=== PATIENT | female | born 1985 | race African-American/Black ===

== ENCOUNTER 2016-12-06 11:37 | Emergency (ER) | payer MEDICAID ==
--- NOTE | 2016-12-06 13:26 | ER Document Report ---
HPI - HPI Patient complains to provider of: congestion and sinus infection Onset: Other Onset/Duration: Gradual Quality of pain: Throbbing Severity: Moderate Pain Level: 3 Context: Patient states she has had cough and congestion, fever, and sinus pain for several days. States she is coughing up green phlegm. Associated Symptoms: Productive cough, Fever, Headache, Sinus pain/drainage, Sore throat Exacerbated by: Denies Relieved by: Denies Similar symptoms previously: Yes Recently seen / treated by doctor: No - ROS ROS below otherwise negative: Yes Systems Reviewed and Negative: Yes All other systems reviewed and negative - CONSTITUTIONAL Constitutional: REPORTS: Fever - EENT EENT: REPORTS: Sore Throat, Ear Pain, Nasal Drainage-Purulent, Congestion - NEURO Neurology: REPORTS: Headache - CARDIOVASCULAR Cardiovascular: DENIES: Chest pain - RESPIRATORY Respiratory: REPORTS: Coughing. DENIES: Trouble Breathing - GASTROINTESTINAL Gastrointestinal: DENIES: Abdominal Pain - URINARY Urinary: DENIES: Dysuria - REPRODUCTIVE Reproductive: DENIES: : - MUSCULOSKELETAL Musculoskeletal: DENIES: Extremity pain - DERM Skin Color: Normal Past Medical History - General Information source: Patient - Social History Smoking Status: Current Every Day Smoker Cigarette use (# per day): Yes - ecig Frequency of alcohol use: Occasional Drug Abuse: None Lives with: Family Family History: Reviewed & Not Pertinent Patient has suicidal ideation: No Patient has homicidal ideation: No Musculoskeltal Medical History: Reports Hx Arthritis, Reports Hx Musculoskeletal Deformity Psychiatric Medical History: Reports: Hx Attention Deficit Hyperactivity Disorder, Hx Depression Surgical Hx: Negative - Immunizations Hx Diphtheria, Pertussis, Tetanus Vaccination: Yes Hx Pneumococcal Vaccination: 03/13/09 Vertical Provider Document - CONSTITUTIONAL Agree With Documented VS: Yes Exam Limitations: No Limitations General Appearance: WD/WN, No Apparent Distress - INFECTION CONTROL TRAVEL OUTSIDE OF THE [place] IN LAST 30 DAYS: No - HEENT HEENT: Atraumatic, Normocephalic, Pharyngeal Erythema Notes: TMs dull bilaterally, patient has facial pain with palpation over maxillary sinuses. - NECK Neck: Normal Inspection, Supple - RESPIRATORY Respiratory: No Respiratory Distress, Wheezing - Mild expiratory wheezing noted O2 Sat by Pulse Oximetry: 97 - CARDIOVASCULAR Cardiovascular: Regular Rate, Regular Rhythm - GI/ABDOMEN Gastrointestinal: Abdomen Soft, Abdomen Non-Tender - MUSCULOSKELETAL/EXTREMETIES Musculoskeletal/Extremeties: MAEW - NEURO Level of Consciousness: Awake, Alert, Appropriate - DERM Integumentary: Warm, Dry Course - Vital Signs Vital signs: Temp Pulse Resp BP Pulse Ox 98.5 F 71 16 113/70 97 12/06/16 12:06 12/06/16 12:06 12/06/16 12:17 12/06/16 12:06 12/06/16 12:06 Discharge - Discharge Clinical Impression: Acute non-recurrent maxillary sinusitis, Wheezing, Productive cough Condition: Good Disposition: HOME, SELF-CARE Additional Instructions: Antibiotics and Flonase as prescribed Continue [id number] cough cold medications as needed Inhaler 2 puffs every 4 hours as needed for cough and/or wheezing Follow-up with your primary care doctor Monday for recheck, earlier if symptoms worsen Return as needed Prescriptions: Albuterol Sulfate [Proair HFA] 1 - 2 puff IH Q4 PRN #1 inhaler PRN Reason: Amox Tr/Potassium Clavulanate [Augmentin 875-125 mg Tablet] 1 tab PO BID #20 tablet Fluticasone Propionate [Flonase Allergy Relief] 15.8 ml NS DAILY #1 spray.susp Prednisone [Deltasone 10 mg Tablet] 10 mg PO ASDIR PRN #21 tablet PRN Reason: Forms: Return to Work, Return to School
[2016-12-06 13:45] VITALS: BP 110/65
== END 2016-12-06 13:44 | disposition home or self-care (01) ==
LOC: ER 11:37
DX: J01.00 Acute maxillary sinusitis, unspecified (principal); R05 Cough; R50.9 Fever, unspecified; J02.9 Acute pharyngitis, unspecified; H92.09 Otalgia, unspecified ear; R06.2 Wheezing; F17.290 Nicotine dependence, other tobacco product, uncomplicated
CPT/HCPCS: 99283

== ENCOUNTER 2016-12-14 21:33 | Emergency (ER) | payer SELFPAY ==
[2016-12-14 21:43] VITALS: BP 120/70
--- NOTE | 2016-12-14 23:11 | RADIOLOGY REPORT (SQ) ---
EXAM DESCRIPTION: KNEE RIGHT 4 VIEWS COMPLETED DATE/TIME: 12/14/2016 10:57 pm REASON FOR STUDY: FALL COMPARISON: None. NUMBER OF VIEWS: Four views. TECHNIQUE: AP, lateral, and both oblique radiographic images acquired of the right knee. LIMITATIONS: None. FINDINGS: MINERALIZATION: Normal. BONES: No acute fracture or dislocation. No worrisome bone lesions. JOINT: No effusion. SOFT TISSUES: No soft tissue swelling. No radio-opaque foreign body. OTHER: No other significant finding. IMPRESSION: NO RADIOGRAPHIC EVIDENCE OF ACUTE INJURY. TECHNICAL DOCUMENTATION: JOB ID: [id number] [employer]- All Rights Reserved
--- NOTE | 2016-12-14 23:14 | RADIOLOGY REPORT (SQ) ---
EXAM DESCRIPTION: KNEE LEFT 4 VIEW COMPLETED DATE/TIME: 12/14/2016 10:57 pm REASON FOR STUDY: FALL COMPARISON: None. NUMBER OF VIEWS: Four views. TECHNIQUE: AP, lateral, and both oblique radiographic images acquired of the left knee. LIMITATIONS: None. FINDINGS: MINERALIZATION: Normal. BONES: No acute fracture or dislocation. No worrisome bone lesions. JOINT: No effusion. SOFT TISSUES: No soft tissue swelling. No radio-opaque foreign body. OTHER: No other significant finding. IMPRESSION: NO RADIOGRAPHIC EVIDENCE OF ACUTE INJURY. TECHNICAL DOCUMENTATION: JOB ID: [id number] [employer]- All Rights Reserved
--- NOTE | 2016-12-14 23:47 | ER Document Report ---
ED General - General Chief Complaint: Fall Stated Complaint: LEG INJURY Time Seen by Provider: 12/14/16 23:35 Notes: The patient is a 31-year-old female who presents 1 day after she scratched her right leg on a sharp shelf at [facility]. She said that she landed on both of her knees and she is having pain when she walks. Her tetanus is up-to-date. She denies heavy bleeding, numbness, tingling or any other injuries. TRAVEL OUTSIDE OF THE [place] IN LAST 30 DAYS: No - Related Data Allergies/Adverse Reactions: acetaminophen [From Vicodin] Allergy (Verified 11/26/13 20:58) VOMITING hydrocodone bitartrate [From Vicodin] Adverse Reaction (Verified 11/26/13 20:58) VOMITING Past Medical History - General Information source: Patient - Social History Smoking Status: Current Every Day Smoker Frequency of alcohol use: None Drug Abuse: None Family History: Reviewed & Not Pertinent Patient has suicidal ideation: No Patient has homicidal ideation: No Renal/ Medical History: Denies: Hx Peritoneal Dialysis Musculoskeltal Medical History: Reports Hx Arthritis, Reports Hx Musculoskeletal Deformity Psychiatric Medical History: Reports: Hx Attention Deficit Hyperactivity Disorder, Hx Depression - Immunizations Hx Diphtheria, Pertussis, Tetanus Vaccination: Yes Hx Pneumococcal Vaccination: 03/13/09 Review of Systems - Review of Systems Notes: REVIEW OF SYSTEMS: CONSTITUTIONAL: -fevers, -chills EENT: -eye pain, -difficulty swallowing, -nasal congestion CARDIOVASCULAR:-chest pain, -syncope. RESPIRATORY: -cough, -SOB GASTROINTESTINAL: -abdominal pain, - nausea, -vomiting, -diarrhea GENITOURINARY: -dysuria, -hematuria MUSCULOSKELETAL: +B/L knee pain, -back pain, -neck pain SKIN: +right leg abrasion HEMATOLOGIC: -easy bruising or bleeding. LYMPHATIC: -swollen, enlarged glands. NEUROLOGICAL: -altered mental status or loss of consciousness, -headache, - neurologic symptoms PSYCHIATRIC: -anxiety, -depression. ALL OTHER SYSTEMS REVIEWED AND NEGATIVE. Physical Exam - Vital signs Vitals: Temp Pulse Resp BP Pulse Ox 97.9 F 82 16 120/70 98 12/14/16 21:40 12/14/16 21:40 12/14/16 21:40 12/14/16 21:40 12/14/16 21:40 - Notes Notes: PHYSICAL EXAMINATION: GENERAL: Well-appearing, well-nourished and in no acute distress. HEAD: Atraumatic, normocephalic. EYES: Pupils equal round and reactive to light, extraocular movements intact, sclera anicteric, conjunctiva are normal. ENT: nares patent, oropharynx clear without exudates. Moist mucous membranes. NECK: Normal range of motion, supple without lymphadenopathy LUNGS: Breath sounds clear to auscultation bilaterally and equal. No wheezes rales or rhonchi. HEART: Regular rate and rhythm without murmurs ABDOMEN: Soft, nontender, normoactive bowel sounds. No guarding, no rebound. No masses appreciated. EXTREMITIES: Normal range of motion, no pitting or edema. No cyanosis. Non- tender and non-swollen knees. NEUROLOGICAL: Cranial nerves grossly intact. Normal speech, normal gait. Normal sensory and motor exams. PSYCH: Normal mood, normal affect. SKIN: Very small superficial abrasion over right cifuentes Course - Re-evaluation Re-evalutation: Patient with no evidence of serious injuries. Her tetanus is up-to-date. Instructed her about abrasion and contusion management. - Vital Signs Vital signs: Temp Pulse Resp BP Pulse Ox 97.9 F 82 16 120/70 98 12/14/16 21:40 12/14/16 21:40 12/14/16 21:40 12/14/16 21:40 12/14/16 21:40 - Diagnostic Test Radiology reviewed: Image reviewed, Reports reviewed Radiology results interpreted by me: B/L Knee x-rays: NAD Discharge - Discharge Clinical Impression: Scratch of lower leg Qualifiers: Encounter type: initial encounter Laterality: right Qualified Code(s): S80.811A - Abrasion, right lower leg, initial encounter Condition: Stable Disposition: HOME, SELF-CARE Additional Instructions: Abrasions An abrasion is a scraping injury of the skin. Some scarring may result. The seriousness of an abrasion is not always obvious at first. Hidden tissue damage may be present and infection may occur despite proper care. Complete healing may take from ten days to as long as a month. The healing time depends on the depth of the abrasion, and on the amount of crushing of underlying tissues from the injury. Keep the wound and dressing clean. Do not shower or bathe the area until okayed by the doctor. If the dressing gets wet, remove it and blot the wound dry, then reapply a clean dressing. Dressings should be changed every day. Sunscreen should be used for six months after the skin is healed. If any signs of infection occur (swelling, redness, increasing tenderness, red streaks, profuse purulent drainage from the abrasion, tender lumps in the armpit or groin above the abrasion, or fever), see the doctor immediately. Forms: Parent Work Note, Return to School
== END 2016-12-15 00:05 | disposition home or self-care (01) ==
LOC: ER 21:33
DX: S80.811A Abrasion, right lower leg, initial encounter (principal); M25.561 Pain in right knee; M25.562 Pain in left knee; W18.09XA Striking against other object with subsequent fall, initial encounter; Y92.512 Supermarket, store or market as the place of occurrence of the external cause; F17.200 Nicotine dependence, unspecified, uncomplicated; Z88.6 Allergy status to analgesic agent
CPT/HCPCS: 99283

== ENCOUNTER 2017-01-02 17:35 | Emergency (ER) | payer SELFPAY ==
[2017-01-02] MEDS ORDERED: ONDANSETRON 4 MG TAB.RAPDIS PO ONE (18:54)
[2017-01-02] MEDS ORDERED: IBUPROFEN 800 MG TABLET PO ONE (18:54)
--- NOTE | 2017-01-02 19:31 | ER Document Report ---
HPI - HPI Patient complains to provider of: Headache, vomiting, fever Onset: Other - 2 days Onset/Duration: Gradual Quality of pain: Achy Pain Level: 3 Context: Patient presents complaining of headache pain to bilateral temporal area that started yesterday and gradually worsened today. Patient reports nausea and vomiting 1 episode today. Patient denies any diarrhea. Patient reports temperature of 102.2 days ago but no fever today. Patient also reports noticing pruritic skin lesions to the right lateral elbow area that started 2 days ago. Patient's daughter is here with similar symptoms. Associated Symptoms: Fever, Headache, Nausea, Vomiting. denies: Chest pain, Nonproductive cough, Productive cough, Diarrhea, Sore throat Exacerbated by: Denies Relieved by: Denies Similar symptoms previously: No Recently seen / treated by doctor: No - ROS ROS below otherwise negative: Yes Systems Reviewed and Negative: Yes All other systems reviewed and negative - CONSTITUTIONAL Constitutional: REPORTS: Fever - NEURO Neurology: REPORTS: Headache - CARDIOVASCULAR Cardiovascular: DENIES: Chest pain - RESPIRATORY Respiratory: DENIES: Coughing - GASTROINTESTINAL Gastrointestinal: REPORTS: Nausea, Patient vomiting. DENIES: Abdominal Pain, Diarrhea - REPRODUCTIVE Reproductive: DENIES: : - MUSCULOSKELETAL Musculoskeletal: DENIES: Extremity pain, Back Pain, Neck Pain - DERM Skin Color: Normal Skin Problems: Rash Past Medical History - General Information source: Patient - Social History Smoking Status: Current Every Day Smoker Chew tobacco use (# tins/day): No Frequency of alcohol use: None Drug Abuse: Heroin Occupation: none Lives with: Family Family History: Reviewed & Not Pertinent Renal/ Medical History: Denies: Hx Peritoneal Dialysis Musculoskeltal Medical History: Reports Hx Arthritis, Reports Hx Musculoskeletal Deformity Psychiatric Medical History: Reports: Hx Attention Deficit Hyperactivity Disorder, Hx Depression Surgical Hx: Negative - Immunizations Hx Diphtheria, Pertussis, Tetanus Vaccination: Yes Hx Pneumococcal Vaccination: 03/13/09 Vertical Provider Document - CONSTITUTIONAL Agree With Documented VS: Yes Exam Limitations: No Limitations General Appearance: WD/WN, No Apparent Distress - INFECTION CONTROL TRAVEL OUTSIDE OF THE [place] IN LAST 30 DAYS: No - HEENT HEENT: Atraumatic, Normal ENT Exam, Normocephalic. negative: Pharyngeal Exudate , Pharyngeal Tenderness, Pharyngeal Erythema, Tympanic Membrane Red, Tympanic Membrane Bulging - NECK Neck: Normal Inspection, Supple. negative: Lymphadenopathy-Left, Lymphadenopathy-Right Notes: No meningismus - RESPIRATORY Respiratory: Breath Sounds Normal, No Respiratory Distress, Chest Non-Tender O2 Sat by Pulse Oximetry: 96 - CARDIOVASCULAR Cardiovascular: Regular Rate, Regular Rhythm, No Murmur - GI/ABDOMEN Gastrointestinal: Abdomen Soft, Abdomen Non-Tender, No Organomegaly, Normal Bowel Sounds - BACK Back: Normal Inspection. negative: CVA Tenderness-Right, CVA Tenderness-Left Notes: No spinal tenderness - MUSCULOSKELETAL/EXTREMETIES Musculoskeletal/Extremeties: PATRICIA OBRIEN - NEURO Level of Consciousness: Awake, Alert, Appropriate Motor/Sensory: No Motor Deficit - DERM Integumentary: Warm, Dry, Rash - Few scattered erythematous raised lesions near the elbow concerning for possible insect bite, no concern for abscess, rash not overlying IVDA track morfin Notes: Patient with multiple IVDA track morfin to bilateral upper extremities Course - Re-evaluation Re-evalutation: 01/02/17 19:[address] Chinchilla regarding patient presentation, physical exam findings as well as history. No suspicion for meningitis at this time. Patient afebrile with normal vital signs. Patient's symptoms similar presentation to her daughter who is also here as a patient tonight. No concern for endocarditis. Patient nontoxic in appearance. - Vital Signs Vital signs: Temp Pulse Resp BP Pulse Ox 98.5 F 74 15 114/73 96 01/02/17 17:48 01/02/17 17:48 01/02/17 17:48 01/02/17 17:48 01/02/17 17:48 Discharge - Discharge Clinical Impression: Skin rash Headache Qualifiers: Headache type: unspecified Headache chronicity pattern: acute headache Intractability: not intractable Qualified Code(s): R51 - Headache Nausea and vomiting Qualifiers: Vomiting type: unspecified Vomiting Intractability: non-intractable Qualified Code(s): R11.2 - Nausea with vomiting, unspecified Condition: Stable Disposition: HOME, SELF-CARE Instructions: Antinausea Medication ([facility]), Headache ([facility]), Insect Bites ([facility]), Viral Syndrome ([facility]), Vomiting ([facility]) Additional Instructions: Return immediately for any new or worsening symptoms Followup with your primary care provider, call tomorrow to make a followup appointment Avoid use of recreational drugs Prescriptions: Naproxen [Naprosyn 250 Nmg Tablet] 1 tab PO BID #14 tablet Promethazine HCl [Phenergan 25 mg Tablet] 25 mg PO Q6H PRN #12 tablet PRN Reason: RX: Triamcinolone Acetonide [Aristocort 0.1% Cream] 1 applic TP TID #60 gm Forms: Return to Work Referrals: [facility] [Provider Group] - Follow up as needed [facility] [Provider Group] - Follow up as needed [facility] [Provider Group] - Follow up as needed
[2017-01-02 20:07] VITALS: BP 103/60
== END 2017-01-02 20:03 | disposition home or self-care (01) ==
LOC: ER 17:35
DX: R21 Rash and other nonspecific skin eruption (principal); R51 Headache; R11.2 Nausea with vomiting, unspecified; R50.9 Fever, unspecified; F17.200 Nicotine dependence, unspecified, uncomplicated
CPT/HCPCS: 99283; S0119

== ENCOUNTER 2018-06-13 16:06 | Emergency (ER) | payer SELFPAY ==
[2018-06-13 16:14] VITALS: BP 131/83
--- NOTE | 2018-06-13 16:37 | ER Document Report ---
ED Respiratory Problem - General Chief Complaint: Congestion Stated Complaint: CONGESTION AND BUG BITES Time Seen by Provider: 06/13/18 16:10 Mode of Arrival: Ambulatory Information source: Patient Notes: 33-year-old female presents to ED for cough cold congestion times 5 days. She states she was having a temperature of 102.5 off and on the and first but is no elevated temp since the first. Patient states she has multiple bedbug bites all over her neck back arms and abdomen. Patient is alert oriented respirations regular and unlabored speaking in full sentences walking with a even steady gait. Patient has no infected insect bites. She does have multiple little pick morfin to the above areas. TRAVEL OUTSIDE OF THE [place] IN LAST 30 DAYS: No - HPI Patient complains to provider of: Cough Onset: Last week Duration: Continuous Initiating Event: URI Quality of pain: Achy Severity: Moderate Pain Level: 3 Context: Smoker Cough: Nonproductive Sputum amount: None Associated symptoms: Chills, Congestion, Cough, PND, Runny nose, Sinus pain/pressure, Other - Multiple "insect bites "to the neck chest back arms and abdomen. Similar symptoms previously: Yes Recently seen / treated by doctor: No - Related Data Allergies/Adverse Reactions: acetaminophen [From Vicodin] Allergy (Verified 06/13/18 16:07) VOMITING hydrocodone bitartrate [From Vicodin] Adverse Reaction (Verified 06/13/18 16:07) VOMITING Past Medical History - General Information source: Patient - Social History Smoking Status: Current Every Day Smoker Cigarette use (# per day): Yes Chew tobacco use (# tins/day): No Smoking Education Provided: Yes - 4 minutes Frequency of alcohol use: Occasional Drug Abuse: Marijuana Lives with: Family Family History: Reviewed & Not Pertinent Patient has suicidal ideation: No Patient has homicidal ideation: No - Past Medical History Cardiac Medical History: Reports: None Pulmonary Medical History: Reports: None EENT Medical History: Reports: None Neurological Medical History: Reports: None Endocrine Medical History: Reports: None Renal/ Medical History: Reports: None Malignancy Medical History: Reports: None GI Medical History: Reports: None Musculoskeletal Medical History: Reports Hx Arthritis, Reports Hx Musculoskeletal Deformity Skin Medical History: Reports None Psychiatric Medical History: Reports: Hx Attention Deficit Hyperactivity Disorder, Hx Depression, Hx Post Traumatic Stress Disorder Traumatic Medical History: Reports: Hx Fractures - Ankle Infectious Medical History: Reports: None Surgical Hx: Negative Past Surgical History: Reports: None - Immunizations Immunizations up to date: Yes Hx Diphtheria, Pertussis, Tetanus Vaccination: Yes Hx Pneumococcal Vaccination: 03/13/09 Review of Systems - Review of Systems Constitutional: No symptoms reported EENT: Nose discharge, Sinus discharge Cardiovascular: No symptoms reported Respiratory: Cough Gastrointestinal: No symptoms reported Genitourinary: No symptoms reported Female Genitourinary: No symptoms reported Musculoskeletal: No symptoms reported Skin: Rash - Rash/insect bites to neck back chest arms legs Hematologic/Lymphatic: No symptoms reported Neurological/Psychological: No symptoms reported -: Yes All other systems reviewed and negative Physical Exam - Vital signs Vitals: Temp Pulse Resp BP Pulse Ox 98.8 F 90 20 131/83 H 100 06/13/18 16:12 06/13/18 16:12 06/13/18 16:12 06/13/18 16:12 06/13/18 16:12 Interpretation: Normal - General General appearance: Appears well, Alert - HEENT Head: Normocephalic, Atraumatic Eyes: Normal Pupils: PERRL Ears: Normal External canal: Normal Tympanic membrane: Normal Sinus: Normal Nasal: Purulent discharge, Swelling Mouth/Lips: Normal Mucous membranes: Normal Pharynx: Post nasal drainage. No: Erythema Neck: Normal - Respiratory Respiratory status: No respiratory distress Chest status: Nontender Breath sounds: Normal Chest palpation: Normal - Cardiovascular Rhythm: Regular Heart sounds: Normal auscultation Murmur: No - Abdominal Inspection: Normal Distension: No distension Bowel sounds: Normal Tenderness: Nontender Organomegaly: No organomegaly - Back Back: Normal, Nontender - Extremities General upper extremity: Normal inspection, Nontender, Normal color, Normal ROM, Normal temperature General lower extremity: Normal inspection, Nontender, Normal color, Normal ROM, Normal temperature, Normal weight bearing. No: Rowan's sign - Neurological Neuro grossly intact: Yes Cognition: Normal Orientation: AAOx4 Amy Coma Scale Eye Opening: Spontaneous Amy Coma Scale Verbal: Oriented [place] Coma Scale Motor: Obeys Commands [place] Coma Scale Total: 15 Speech: Normal Motor strength normal: LUE, RUE, LLE, RLE Sensory: Normal - Psychological Associated symptoms: Normal affect, Normal mood - Skin Skin Temperature: Warm Skin Moisture: Dry Skin Color: Normal Course - Re-evaluation Re-evalutation: 06/13/18 16:46 After performing a Medical Screening Examination, I estimate there is LOW risk for ACUTE CORONARY SYNDROME, RESPIRATORY FAILURE, SEPSIS OR MENINGITIS, thus I consider the discharge disposition reasonable. I have reevaluated this patient multiple times and no significant life threatening changes are noted. The patient and I have discussed the diagnosis and risks, and we agree with discharging home with close follow-up. We also discussed returning to the Emergency Department immediately if new or worsening symptoms occur. We have discussed the symptoms which are most concerning (e.g., changing or worsening pain, trouble swallowing or breathing, neck stiffness, fever) that necessitate immediate return. - Vital Signs Vital signs: Temp Pulse Resp BP Pulse Ox 98.8 F 90 20 131/83 H 100 06/13/18 16:12 06/13/18 16:12 06/13/18 16:12 06/13/18 16:12 06/13/18 16:12 Discharge - Discharge Clinical Impression: URI (upper respiratory infection) Qualifiers: URI type: unspecified viral URI Qualified Code(s): J06.9 - Acute upper respiratory infection, unspecified Insect bites Qualifiers: Encounter type: initial encounter Site of insect bite: unspecified site Qualified Code(s): W57.XXXA - Bitten or stung by nonvenomous insect and other nonvenomous arthropods, initial encounter Condition: Stable Disposition: HOME, SELF-CARE Instructions: Family Physicians / Practices Additional Instructions: Insect Bites You have been bitten by an insect. These bites can cause two types of swelling: an initial swelling due to insect saliva or injected poison, and a late reaction due to your body's allergic reaction. This initial local reaction may be uncomfortable but is not dangerous. Often there's an itchy "hive" at the bite location. This is treated with antihistamines, cold compresses, and resting the affected body part. The later reaction often develops about the second day. The entire area becomes very swollen, red, itchy, and tender. This is an allergic reaction. Your body is attacking the leftover insect saliva or venom. This type of allergy is unpleasant, but not dangerous. We treat this swelling with cortisone-type medicine. Sometimes we use antibiotics if we're worried about infection. Antihistamines help with the itch. If you develop a fever, chills, a red streak, or swollen glands in the area of the bite, infection may be starting. Return at once. UPPER RESPIRATORY ILLNESS: You have a viral infection of the respiratory passages -- a "cold." This common infection causes nasal congestion, drainage, and often sore throat and cough. It is highly contagious. The disease usually lasts about 10 to 14 days. There is no "cure" for the viral infection -- it must run its course. If there is a complication, such as bacterial infection in the nose, sinuses, middle ear, or bronchial tubes, antibiotics may be required. The antibiotics won't affect the virus. Drink plenty of fluids. A humidifier may help. An expectorant medication or decongestant may make you more comfortable. Use acetaminophen or ibuprofen for fever or aches. See the doctor if fever persists over two days, if there is any significant worsening of your symptoms, or if you simply fail to improve as expected. Ampetamine Abuse Amphetamines are addicting stimulants. Amphetamines overstimulate the nervous system and give a false feeling of power and mastery. These drugs may be obtained as prescription pills for weight loss, narcolepsy, or attention-deficit disorder. More often they're bought as an illegal street drug, methamphetamine (crank, crystal, speed). Using amphetamines repeatedly can lead to serious medical problems including malnutrition, severe depression, and paranoia. It can take increasing amounts to feel good. Eventually, there will be a "burn out." When you go off amphetamines there is a period of depression that may last for weeks or even months. High doses of amphetamines can cause seizures, confusion, hallucinations, delusions, high blood pressure, muscle damage, heart damage, or sudden . Many times these deadly complications occur even with "normal" doses. Injection of amphetamines is risky for abscesses, endocarditis (heart infection), pneumonia, and AIDS. Withdrawal from amphetamines often causes anxiety, depression, and drug cravings. Some users become paranoid and psychotic. There may be cramps, nausea, and vomiting. Many treatment programs are available, but you must make the decision to quit. Medication can be prescribed to control the symptoms of amphetamine toxicity (beta blockers or benzodiazepines). Withdrawal symptoms may require tranquilizers. USE OF ACETAMINOPHEN (Tylenol): Acetaminophen may be taken for pain relief or fever control. It's much safer than aspirin, offering a wider range of "safe" dosages. It is safe during . Some brand names are Tylenol, Panadol, Datril, Anacin 3, Tempra, and Liquiprin. Acetaminophen can be repeated every four hours. The following are maximum recommended dosages: >89 pounds or adults 650 mg to 900 mg Acetaminophen can be repeated every four hours. Maximum dose not to exceed 4000 mg a day. SMOKING: If you smoke, you should stop smoking. The tar and chemicals in cigarette smoke are harmful. Smoking has been shown to cause: emphysema chronic bronchitis lung cancer mouth and throat cancer stomach and pancreas cancer premature aging defects In addition, smoking increases ear and lung infections in children of smokers. FOLLOW-UP CARE: If you have been referred to a physician for follow-up care, call the physicians office for an appointment as you were instructed or within the next two days. If you experience worsening or a significant change in your symptoms, notify the physician immediately or return to the Emergency Department at any time for re-evaluation. Forms: Elevated Blood Pressure, Smoking Cessation Education, Return to Work
== END 2018-06-13 16:46 | disposition home or self-care (01) ==
LOC: ER 16:06
DX: R05 Cough (principal); S10.96XA Insect bite of unspecified part of neck, initial encounter; S20.369A Insect bite (nonvenomous) of unspecified front wall of thorax, initial encounter; S40.862A Insect bite (nonvenomous) of left upper arm, initial encounter; S40.861A Insect bite (nonvenomous) of right upper arm, initial encounter; S80.862A Insect bite (nonvenomous), left lower leg, initial encounter; S80.861A Insect bite (nonvenomous), right lower leg, initial encounter; T14.8XXA Other injury of unspecified body region, initial encounter; W57.XXXA Bitten or stung by nonvenomous insect and other nonvenomous arthropods, initial encounter; F17.210 Nicotine dependence, cigarettes, uncomplicated; Z71.6 Tobacco abuse counseling; J06.9 Acute upper respiratory infection, unspecified; B97.89 Other viral agents as the cause of diseases classified elsewhere
CPT/HCPCS: 99283; 99406

== ENCOUNTER → 2018-07-13 | Outpatient (CLI) | payer MEDICAID ==
--- NOTE | 2018-07-13 14:47 | RADIOLOGY REPORT (SQ) ---
EXAM DESCRIPTION: U/S [id number] TRNABD 1GES W/ODOP COMPLETED DATE/TIME: 07/13/2018 2:38 pm REASON FOR STUDY: Z34.81 ENCOUNTER FOR SUPRVSN OF NORMAL , FIRST TRIMESTER Z34.81 ENCOUNTE R FOR SUPRVSN OF NORMAL , FIRST TRIM COMPARISON: None. TECHNIQUE: Transabdominal static and realtime grayscale images acquired of the pelvis. Additional se lected spectral and color Doppler images recorded. All images stored on PACs. CG: Not available. CLINICAL DATES: 12 weeks 5 days. LIMITATIONS: None. FINDINGS: FETUS: Single Living intrauterine . ULTRASOUND EGA: 9 weeks 2 days. ULTRASOUND ESTHER: 02/13/2019 EFW: Not applicable less than 20 weeks. CRL: 2.5 cm. FHR: 153 beats per minute. SURVEY: Too early to assess. AMNIOTIC FLUID: Adequate amount. PLACENTA: Not yet developed due to early gestation. SUBCHORIONIC BLEED: No. SIZE OF BLEED: Not applicable. UTERUS: No masses. No anomalies. CERVICAL LENGTH: 2.5 cm. Closed. RIGHT ADNEXA: Ovary not identified due to poor acoustical window. No free fluid. No adnexal masses. LEFT ADNEXA: Ovary not identified due to poor acoustical window. No adnexal free fluid. No adnexal masses. FREE FLUID: None. OTHER: No other significant finding. IMPRESSION: LIVING INTRAUTERINE . EGA 9 WEEKS 2 DAYS. Trimester of : First - 0 to 13 weeks. TECHNICAL DOCUMENTATION: JOB ID: [id number] [employer]- All Rights Reserved Reading location - IP/workstation name: [email or web address]
== END ==
LOC: RAD 13:58
PROVIDERS: ATTEND Midwife
DX: Z34.81 Encounter for supervision of other normal pregnancy, first trimester (principal); Z3A.12 12 weeks gestation of pregnancy
CPT/HCPCS: 76801